=== PATIENT | female | born 2000 | race Two or more races ===

== ENCOUNTER 2019-11-16 18:16 | Emergency (ER) | payer OTHER ==
[~2019-11-16] VITALS: Ht 154.9 cm; Wt 62.9 kg
[2019-11-16] MEDS ORDERED: SODIUM CHLORIDE FLUSH 10ML SYR IVF ONE (19:00)
[2019-11-16 19:31] LABS: ALANINE AMINOTRANSFERASE 36 U/L (12-78); ALBUMIN 4.2 g/dL (3.4-5.0); ANION GAP 7 mmol/L (5-15); BASOPHILS # (AUTO) 0.04 x10^3/uL (0-0.3); BASOPHILS % (AUTO) 1 % (0-1); CALCIUM 9.4 mg/dL (8.5-10.1); CHLORIDE 104 mmol/L (98-107); CREATININE 0.75 mg/dL (0.55-1.02); EOSINOPHILS # (AUTO) 0.05 x10^3/uL (0-0.8); EOSINOPHILS % (AUTO) 1 % (1-7); LYMPHOCYTES % (AUTO) 20 % (22-44); MD NO; MEAN CORPUSCULAR HEMOGLOBIN 22.8 pg (27.0-34.8); MEAN CORPUSCULAR HGB CONC 31.9 g/dL (32.4-35.8); MEAN CORPUSCULAR VOLUME 71.6 fL (80-100); MONOCYTES # (AUTO) 0.56 x10^3/uL (0-1.4); MONOCYTES % (AUTO) 10 % (2-9); NEUTROPHILS # (AUTO) 3.83 x10^3/uL (1.8-8.0); NEUTROPHILS % (AUTO) 69 % (42-75); PLATELET COUNT 336 x10^3/uL (130-400); RED BLOOD COUNT 5.25 x10^6/uL (3.82-5.3); RED CELL DISTRIBUTION WIDTH 17.2 % (9.6-15.2)
[2019-11-16 19:35] LABS: ALKALINE PHOSPHATASE 121 U/L (45-117); BILIRUBIN,TOTAL 0.3 mg/dL (0.2-1.0); TOTAL PROTEIN 9.1 g/dL (6.4-8.2)
[2019-11-16 19:37] LABS: MICROSCOPIC NOT IND
--- NOTE | 2019-11-16 19:45 | NUR ---
PT A&OX4, RESP EVEN & UNLABORED, SPEECH CLEAR, SKIN WNL. C/O RLQ PAIN RADIATING TO RT FLANK AREA, NAUSEA. DENIES UTI SX. TOOK IBUPROFEN 400MG AT 1745. LMP 11/09/19. LAST BM: YESTERDAY. LAST ORAL INTAKE: 1700 TODAY. PT'S MOM IN ROOM.
--- NOTE | 2019-11-16 20:25 | NUR ---
PT GIVEN WATER TO DRINK, PER VO U/S. INSTRUCTED PT TO KEEP DRINKING WATER TO FILL BLADDER; NOTIFY THIS RN WHEN BLADDER FULL. U/S WILL BE NOTIFIED WHEN PT IS READY.
--- NOTE | 2019-11-16 21:05 | NUR ---
PT REPORTS HAVING A FULL BLADDER. U/S NOTIFIED.
--- NOTE | 2019-11-16 21:45 | NUR ---
PT RESTING QUIETLY ON GURNEY. MOM IN ROOM.
--- NOTE | 2019-11-16 21:53 | NUR ---
REPORT RECIEVED FROM KAROL MILLAN
--- NOTE | 2019-11-16 21:53 | NUR ---
PT REPORT TO KAROL HARTMAN. PT CARE TRANSFERRED.
[2019-11-16 22:27] VITALS: BP 125/71
== END 2019-11-16 22:28 ==
LOC: ED 19:40
DX: R10.31 Right lower quadrant pain (principal); R50.9 Fever, unspecified
CPT/HCPCS: 36415; 76830; 80053; 81003; 83690; 84703; 85025; 99284